=== PATIENT | male | born 1965 | race Two or more races ===

== ENCOUNTER 2016-09-26 16:59 | Emergency (ER) | payer MEDICAID, OTHER ==
[~2016-09-26] VITALS: Ht 188 cm; Wt 117.9 kg
[2016-09-26 18:06] LABS: Basophils # (auto) 0 uL; Basophils % (auto) 0.4 % (0.0-2.0); Eosinophils # (auto) 0.4 uL; Eosinophils % (auto) 3.5 % (0.0-7.0); Hematocrit 45.2 % (41.0-53.0); Hemoglobin 15.2 g/dL (13.5-17.5); Lymphocytes # (auto) 2.5 uL; Lymphocytes % (auto) 23.4 % (10.0-50.0); Mean Corpuscular Hemoglobin 30.7 pg (28.0-32.0); Mean Corpuscular Hgb Conc. 33.7 g/dL (32.0-36.0); Mean Corpuscular Volume 91.3 fL (80.0-100.0); Mean Platelet Volume 9.7 fL (7.4-10.4); Monocytes # (auto) 0.9 uL; Monocytes % (auto) 8.1 % (0.0-12.0); Neutrophils # (auto) 6.8 uL; Neutrophils % (auto) 64.6 % (37.0-80.0); Platelet Count (auto) 302 10^3/uL (140-450); Red Cell Distribution Width 13.2 % (11.6-16.0); White Blood Cell 10.6 10^3/uL (4.4-10.8)
[2016-09-26 18:19] LABS: Potassium 4.2 mmol/L (3.5-5.1)
[2016-09-26 18:22] LABS: BUN/Creatinine Ratio 10.1; Bilirubin, Total 0.3 mg/dL (0.2-1.0); Total Protein 8.8 g/dL (6.4-8.2)
[2016-09-26 18:25] LABS: Lactic Acid w/Reflex 3.3 mmol/L (0.4-2.0)
[2016-09-26 18:56] LABS: REFLEX LACTIC ACID YES OR NO YES
[2016-09-27 00:51] VITALS: BP 147/111
[2016-09-27] MEDS ORDERED: SODIUM CHLORIDE 0.9% 1,000 ML IV ONE (01:00)
== END 2016-09-27 01:54 | disposition home or self-care (01) ==
LOC: ER 17:26
DX: S91.302D Unspecified open wound, left foot, subsequent encounter (principal); Z48.01 Encounter for change or removal of surgical wound dressing; Z76.0 Encounter for issue of repeat prescription
CPT/HCPCS: 36415; 73630; 80053; 82962; 83605; 85025; 87040; 96360; 99285; J7030